=== PATIENT | male | born 1995 | race Two or more races ===

== ENCOUNTER 2022-06-28 22:27 | Emergency (ER) | payer OTHER ==
[~2022-06-28] VITALS: Ht 172.7 cm; Wt 75.7 kg
[2022-06-28] MEDS ORDERED: GILTUSS (23:37)
[2022-06-28] MEDS ORDERED: TYLENOL (23:37)
[2022-06-28] MEDS ORDERED: [UNRECOGNIZED DRUG - OTHER] (23:38)
[2022-06-29] MEDS ORDERED: PHENAGIL TABLE1 EACH PO ×2 (02:41)
[2022-06-29] MEDS ORDERED: OSEL75CA PO (02:41)
== END 2022-06-29 02:45 ==
LOC: ER 22:27
DX: U07.1 COVID-19 (principal); J11.1 Influenza due to unidentified influenza virus with other respiratory manifestations; Z88.6 Allergy status to analgesic agent